=== PATIENT | female | born 1980 ===

== ENCOUNTER 2019-07-23 09:49 | Emergency (ER) | payer OTHER ==
[~2019-07-23] VITALS: Ht 162.6 cm; Wt 113.4 kg
[2019-07-23] MEDS ORDERED: PREVACID30 MG (10:37)
== END 2019-07-23 16:09 | disposition home or self-care (01) ==
LOC: ER 09:49
DX: K52.89 Other specified noninfective gastroenteritis and colitis (principal); R11.11 Vomiting without nausea; R10.84 Generalized abdominal pain